=== PATIENT | female | born 1960 | race Native Hawaiian/Other Pacific Islander ===

== ENCOUNTER 2019-04-28 08:49 | Day surgery (SDC) | payer OTHER, SELFPAY ==
[2019-04-28] VITALS (8 sets, daily range): BP systolic 105–126; BP diastolic 54–83; PULSE 58–69; RESP 8–17; TEMP 36.1–36.6; O2SAT 86–100; BMI 24.7
--- NOTE | 2019-04-28 | PATH_ITS ---
[facility] Accession Number: [id number] . 01 Material submitted: . PART A: body - POLYP AT 60 PART B: body - POLYP AT 20 . 01 Clinical history: . OTHER FECAL ABNORMALITIES . 02 Diagnosis: A. Colon, Polyp at 60 cm, Biopsy: Colonic mucosa with surface hyperplastic-type changes. Negative for dysplasia and malignancy. . B. Colon, Polyp at 20, Biopsy: Tubular adenoma. MRV 04/30/2019 1010 Local . 02 Electronically signed: . Barb Segura MD, Pathologist NPI- [id number] . 01 Gross description: . (A) Received in formalin, labeled polyp @ 60, is a fragment of marmolejo tissue (0.4 x 0.4 x 0.1 cm). Filtered and entirely submitted in cassette A1. (B) Received in formalin, labeled polyp @ 20, is a marmolejo polyp (0.7 x 0.5 x 0.4 cm). The resection margin is inked blue. Bisected and entirely submitted in cassette A1. ([id number]) /MRV 04/29/2019 1211 Local . 02 Pathologist provided ICD-10: D12.6 . 02 CPT . 673251, [id number] Performed at: 01 [facility] [address], [place], [place] [id number] MD Enmanuel Butcher MD Phone: [phone] Performed at: 02 [facility] [address] [place], [place] [id number] MD Barb Segura MD Phone: [phone]
[2019-04-28] MEDS: SODIUM CHLORIDE 0.9% 1,000 ML 200 ML IV (09:27)
--- NOTE | 2019-04-28 09:34 | PM.HP.1 ---
History of Present Illness History of Present Illness Date Patient Seen: 04/28/19 Time Patient Seen: 09:42 Chief complaint: [id number] Narrative: Patient presents for colorectal screening. They have never had any previous examination for such. They had a positive cologaurd test recently. No family history of colon cancer. On further history denies any recent gastrointestinal symptoms. No nausea, vomiting, abdominal pain, loss of appetite, unexplained weight loss, change in bowel habits, diarrhea, constipation, melena, hematochezia, or bright red blood per rectum. Patient History Medical History H/O: hysterectomy (Acute) Surgical History History of appendectomy (Acute) Social History household members: spouse Meds Home Medications and Allergies Home Medications Medication Instructions Recorded Confirmed Type No Known Home Medications 04/28/19 04/28/19 History Allergies Allergy/AdvReac Type Severity Reaction Status Date / Time No Known Drug Allergies Allergy Verified 04/28/19 09:08 Review of Systems Review of Systems ROS Unobtainable: All systems reviewed & are unremarkable except as noted in HPI and below Exam Narrative Exam Narrative: General-adult female no acute distress, well nourished HEENT-moist mucous membranes, no scleral icterus Neck-supple with full range of motion, no lymphadenopathy Chest- no labored respirations, clear to auscultation bilaterally Cardiac-regular rate and rhythm Abdomen-soft, nontender, non distended Extremities-no edema, warm well perfused Neurological-alert and oriented x 3. No focal deficits Skin-normal temperature and turgor, no rashes or ulcers Assessment & Plan Assessment & Plan narrative: Patient is requiring colorectal screening. Colonoscopy is recommended. Technical details were discussed. Risks, benefits, alternatives explained. Risks including but not limited to sedation, aspiration, bleeding, pain, missed lesion, incomplete examination, need for further radiographic studies, colonic perforation, need for major abdominal surgery, and all attendant risks major surgery were discussed at length. All questions were answered to their satisfaction, and they voiced understanding.
--- NOTE | 2019-04-28 10:44 | PM.OP.ENDO ---
Operative Date/Time/Diagnoses Date of procedure: 04/28/19 Time of procedure: 10:44 Pre-op diagnosis: Positive Cologaurd test Post-op diagnosis: same Procedure & Clinicians Study performed: Colonoscopy Same procedure as scheduled: Yes Indications: 58F no prior colonoscopy with positive cologaurd test Surgeon: Mike Perez Procedure Notes SCOAP/Timeout: Performed Procedure in detail: Small external hemorrhoids. Digital rectal exam was performed no masses. The scope was carefully inserted into the rectum advanced through the colon to the cecum. The ileocecal valve was reached. Scope was there slowly withdrawn. There was a less than 1 cm benign-appearing polyp at 60 cm with no stalk that was biopsied multiple times. The site was hemostatic. Upon further withdrawal there was a pedunculated polyp less than 1 cm and 20 cm from the anal verge that was removed with snare electrocautery. The site was found to be hemostatic the specimen removed. The scope was then retroflexed within the rectum demonstrated grade was internal hemorrhoids. The rectum was then desufflated and the scope removed. Scope withdrawal time: 25 Sedation minutes: 38 Findings: polyp Specimen(s): other (polyps at 20 and 60cm) Impression: Polyps Post-procedure Recommendations: Colonscopy in 5 years Disposition: Acute Care
[2019-04-28] MEDS: fentaNYL 250 MCG/5 ML INJ IV (10:45)
[2019-04-28] MEDS: MIDAZOLAM 5 MG/5 ML VIAL IV (10:46)
--- NOTE | 2019-04-28 11:26 | SUR.PHASEI ---
stable pacu stay, report to oscar may.
--- NOTE | 2019-04-28 11:58 | SUR.PHASEII ---
1155 Had a 350 ml emesis (reported by BIOLOGIST) with complete resolution of nausea. Pt. wants to go home. Quease-ease and emesis bags given precautionary. Did not want any medication but told her that it she had more problem w/nausea to notify the dr office. Pleasant, no questions/concerns.
== END 2019-04-28 11:55 | disposition home or self-care (01) ==
PROVIDERS: PCP Family Medicine; Visit Provider Surgery
PROC: 0DJD8ZZ Inspection of Lower Intestinal Tract, Via Natural or Artificial Opening Endoscopic (ICD-10-PCS; CPT 45378; principal; 2019-04-28 10:00)
DX: R19.5 Other fecal abnormalities (principal); D12.6 Benign neoplasm of colon, unspecified; K64.4 Residual hemorrhoidal skin tags; K64.8 Other hemorrhoids
CPT/HCPCS: 45385; 99152; 99153; J2250; J3010

== ENCOUNTER 2021-06-24 10:35 | Emergency (ER) | payer OTHER, SELFPAY ==
[2021-06-24 10:57] VITALS: BP 131/70; PULSE 94; RESP 16; TEMP 37.7; O2SAT 100; BMI 23.2
--- NOTE | 2021-06-24 12:07 | ED_ITS ---
HPI - Skin/Abscess/Foreign Bdy General Chief complaint: Skin/Abscess/Foreign Body Stated complaint: cyst on rump Time Seen by Provider: 06/24/21 11:58 Source: patient Mode of arrival: Ambulatory Limitations: no limitations History of Present Illness HPI narrative: 60-year-old female here for evaluation of an abscess on her right buttocks. She started noticing some redness and several days ago. Was seen by her primary doctor. Was started on Keflex. Despite this medication symptoms have been worsening. No fevers. No problems urinating or bowel movements. Seen by primary doctor again today and was advised to come the emergency department for further observation Related Data Previous Rx's Medication Instructions Recorded doxycycline hyclate 100 mg tablet 100 mg PO BID 7 Days #14 tab 06/24/21 Allergies Allergy/AdvReac Type Severity Reaction Status Date / Time No Known Drug Allergies Allergy Verified 04/28/19 09:08 Review of Systems Constitutional Constitutional: Denies fever(s) Gastrointestinal Gastrointestinal: Reports as per HPI and Reports system reviewed and no additional complaints, except as documented Integumentary/Breasts Skin/Breast: Reports system reviewed and no additional complaints, except as documented Neurologic Neurologic: Reports system reviewed and no additional complaints, except as documented Hematologic/Lymphatic On Anticoagulants: No Patient History Surgical History H/O: hysterectomy History of appendectomy Social History household members: spouse Smoking Status: Current every day smoker Smoking Status: Current every day smoker Substance Use Type: does not use Exam Initial Vital Signs Initial Vital Signs: Vital Signs Temperature 99.8 F H 06/24/21 10:57 Pulse Rate 94 H 06/24/21 10:57 Respiratory Rate 16 06/24/21 10:57 Blood Pressure 131/70 06/24/21 10:57 Pulse Oximetry 100 06/24/21 10:57 Const General: cooperative and healthy appearing Resp Effort & Inspection: normal respiratory effort Cardio Rate: regular rate GI Other: Rectal exam is unremarkable. Roshan's seen or follow-up Skin Other: Patient with a large area of induration fluctuation on the right buttock. Does have some surrounding erythema Neuro General: patient alert and patient awake Procedures Abscess I/D I&D #1: Site: other (Right buttocks) Side (if applicable): right Local Anesthetic: lidocaine 1% and with bicarb Amount of anesthesia used (mL): 5 Technique: incised with #11 blade Irrigation: No Packing used?: iodoform Course Orders Ordered: Discontinued Medications Lidocaine/Sodium Bicarbonate (Lido 1%/Sod Bicarb 8.4% (10ml) 10 Ml Syringe) 10 ml INJ NOW ONE Stop: 06/24/21 12:09 Last Admin: 06/24/21 12:21 Dose: 10 ml Documented by: ALEJANDRO Vital Signs Vital signs: Vital Signs - 8 hr 06/24/21 10:57 Temperature 99.8 F H Pulse Rate 94 H Respiratory Rate 16 Blood Pressure 131/70 Pulse Oximetry 100 MDM - Skin/Abscess/Foreign Bdy MDM Narrative Medical decision making narrative: Bedside ultrasound does show abscess. The physical exam is more consistent with a very inguinal abscess rather than a pilonidal cyst abscess. Incision and drainage done as described above. Patient was given care instructions and return precautions. Will switch her to doxycycline. She expressed understanding and agreement. Discharge Plan Departure Patient Disposition: Home Clinical Impression: Abscess of skin or subcutaneous tissue Instructions: DI for Incision and Drainage of a Skin Abscess Activity Restrictions/Additional Instructions: I would expect some drainage from the area over the next hours to day. Keep the area covered to keep your clothes cleaned. There is packing in place and this can be removed in 48 hours like we discussed. Stop the antibiotics your currently taking we will place you on a new antibiotic. Keep your scheduled medical appointments. Return to the emergency department for any new or wor sening symptoms Prescriptions: New doxycycline hyclate 100 mg tablet 100 mg PO BID 7 Days Qty: 14 0RF Referrals: Jose Maria Mendoza [Primary Care Provider] -
[2021-06-24] MEDS: LIDO 1%/SOD BICARB 8.4% (10ML) 10 ML SYRINGE INJ (12:21)
[2021-06-24 12:55] VITALS: BP 138/75; PULSE 92; RESP 16; O2SAT 98
== END 2021-06-24 12:57 | disposition home or self-care (01) ==
PROVIDERS: Emergency Provider Emergency Medicine; PCP Family Medicine
DX: L02.31 Cutaneous abscess of buttock (principal)
CPT/HCPCS: 10060; 99282; 99283

== ENCOUNTER 2022-07-31 12:15 | Emergency (ER) | payer OTHER, SELFPAY ==
[2022-07-31 12:28] VITALS: BP 132/64; PULSE 85; RESP 18; TEMP 36.9; O2SAT 99; BMI 21.0
[2022-07-31] MEDS: TRIMETH/SULFA 160/800 (DS) TABLET 1 TAB PO (15:29)
[2022-07-31] MEDS: cephALEXin 250 MG CAPSULE 500 MG PO (15:29)
[2022-07-31 15:32] VITALS: BP 112/56; PULSE 89; RESP 16; O2SAT 99
--- NOTE | 2022-07-31 15:40 | ED_ITS ---
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 States it is purulence now with odorous drainage, tenderness on the left side as well with some firm tissue but denies palpable abscess or drainage. Patient had a procedure in the emergency department approximately 1 year ago to drain this abscess, states it progressed to a fistula and was a long-term wound. She denies history of allergies to antibiotics. Has not done warm compresses yet, denies fever or chills. States went sledding a few days ago which exacerbated this and now with swelling and tenderness surrounding her anus with drainage coming out of previous fistula site Related Data Previous Rx's Medication Instructions Recorded sulfamethoxazole 800 1 tab PO BID #20 tabs 07/31/22 mg-trimethoprim 160 mg tablet (Bactrim DS) Allergies Allergy/AdvReac Type Severity Reaction Status Date / Time No Known Drug Allergies Allergy Verified 07/31/22 12:28 Review of Systems <KETURAH Stanley - Last Filed: 07/31/22 15:46> Review of Systems ROS Unobtainable: All systems reviewed & are unremarkable except as noted in HPI and below Patient History <KETURAH Stanley - Last Filed: 07/31/22 15:46> Surgical History H/O: hysterectomy History of appendectomy Social History household members: spouse Smoking Status: Current every day smoker Smoking Status: Current every day smoker tobacco type: cigarettes alcohol intake frequency: 0-2 drinks per day Substance Use Type: marijuana Exam <KETURAH Stanley - Last Filed: 07/31/22 15:46> Narrative Exam Narrative: Reviewed vitals signs and nursing notes. General: cooperative, comfortable, in no acute distress, well groomed HEENT: symmetrical facial expressions, moist mucous membranes MSK: moves all extremities, neurovascularly intact, no weakness, normal tone Skin: brisk capillary refill, without pallor or erythema, anus with a couple of small hemorrhoids, nontender, purulence drainage coming from previous incision the right near her sphincter, express more purulence drainage from surrounding until without anymore. To the left of patient's anus there is firm tissue without fluctuance, appears most like cellulitis without abscess at this point. Will treat with antibiotics and encourage warm compresses to bring infection to the surface. Neuro: normal speech and cognition, A&O x3, ambulatory, clear speech Psych: mental status is grossly normal, congruent mood, normal affect, pleasant and cooperative Initial Vital Signs Initial Vital Signs: Vital Signs Temperature 98.5 F 07/31/22 12:28 Pulse Rate 85 07/31/22 12:28 Respiratory Rate 18 07/31/22 12:28 Blood Pressure 132/64 07/31/22 12:28 Pulse Oximetry 99 07/31/22 12:28 Oxygen Delivery Method 07/31/22 12:28 <Benjy López MD - Last Filed: 08/09/22 21:42> Initial Vital Signs Initial Vital Signs: Vital Signs Temperature 98.5 F 07/31/22 12:28 Pulse Rate 85 07/31/22 12:28 Respiratory Rate 18 07/31/22 12:28 Blood Pressure 132/64 07/31/22 12:28 Pulse Oximetry 99 07/31/22 12:28 Oxygen Delivery Method 07/31/22 12:28 Course <KETURAH Stanley - Last Filed: 07/31/22 15:46> Orders Ordered: Discontinued Medications Cephalexin HCl (Cephalexin 250 Mg Capsule) 500 mg PO NOW ONE Stop: 07/31/22 15:15 Last Admin: 07/31/22 15:29 Dose: 500 mg Documented By: DUC Lidocaine HCl (Lidocaine 2% Inj Sdv) 5 ml INJ INTRA-OP ONE Stop: 07/31/22 14:59 Last Admin: 07/31/22 15:24 Dose: Not Given Documented By: DUC Lidocaine HCl (Lidocaine 2% Inj Mdv 20ml) 20 ml INJ INTRA-OP ONE Stop: 07/31/22 14:59 Last Admin: 07/31/22 15:23 Dose: Not Given Documented By: DUC Lidocaine HCl (Lidocaine 1% 20 Ml) 20 ml INJ INTRA-OP ONE Stop: 07/31/22 14:59 Last Admin: 07/31/22 15:23 Dose: Not Given Documented By: DUC Trimethoprim/Sulfamethoxazole (Trimeth/Sulfa 160/800 (Ds) Tablet) 1 tab PO NOW ONE Stop: 07/31/22 15:15 Last Admin: 07/31/22 15:29 Dose: 1 tab Documented By: DUC Vital Signs Vital signs: Vital Signs - 8 hr 07/31/22 12:28 07/31/22 15:32 Temperature 98.5 F Pulse Rate 85 89 Respiratory Rate 18 16 Blood Pressure 132/64 112/56 L Pulse Oximetry 99 99 Oxygen Delivery Method Room Air Room Air <Benjy López MD - Last Filed: 08/09/22 21:42> Orders Ordered: Discontinued Medications Cephalexin HCl (Cephalexin 250 Mg Capsule) 500 mg PO NOW ONE Stop: 07/31/22 15:15 Last Admin: 07/31/22 15:29 Dose: 500 mg Documented By: DUC Lidocaine HCl (Lidocaine 2% Inj Sdv) 5 ml INJ INTRA-OP ONE Stop: 07/31/22 14:59 Last Admin: 07/31/22 15:24 Dose: Not Given Documented By: DUC Lidocaine HCl (Lidocaine 2% Inj Mdv 20ml) 20 ml INJ INTRA-OP ONE Stop: 07/31/22 14:59 Last Admin: 07/31/22 15:23 Dose: Not Given Documented By: DUC Lidocaine HCl (Lidocaine 1% 20 Ml) 20 ml INJ INTRA-OP ONE Stop: 07/31/22 14:59 Last Admin: 07/31/22 15:23 Dose: Not Given Documented By: DUC Trimethoprim/Sulfamethoxazole (Trimeth/Sulfa 160/800 (Ds) Tablet) 1 tab PO NOW ONE Stop: 07/31/22 15:15 Last Admin: 07/31/22 15:29 Dose: 1 tab Documented By: DUC Vital Signs Vital signs: Vital Signs - 8 hr 07/31/22 12:28 07/31/22 15:32 Temperature 98.5 F Pulse Rate 85 89 Respiratory Rate 18 16 Blood Pressure 132/64 112/56 L Pulse Oximetry 99 99 Oxygen Delivery Method Room Air Room Air MDM - Skin/Abscess/Foreign Bdy <Barb Serrano Pebblesmoisés, [facility] - Last Filed: 07/31/22 15:46> [facility] Narrative Medical decision making narrative: This is a 61-year-old female presents to the emergency department with drainage from previous anal fistula that was complicated from previous abscess 1 year ago complaining of purulence drainage and concern for infection. Differential diagnoses include infection of previous fistula space, cellulitis, additional abscess on the other side of her anus, pilonidal cyst, gangrene, MRSA. Expressed purulence from left draining open site, to the left patient's anus there is erythematous and firm tissue without fluctuance or palpable abscess. Will treat for cellulitis, encourage warm compresses over the next 24-72 hours, return if this develops into a fluid pocket, follow-up with general surgery for treatment and with PCP for further evaluation. Sensitivity/pain to light touch around the erythematous area. No lymphangitic spread visible and no fluid pockets or fluctuance concerning for abscess noted. Low concern for osteomyelitis or DVT. No immune compromise, bullae, pain out of proportion, or rapid progression concerning for necrotizing fasciitis Patient is appropriate and amenable to discharge home. Vital signs are stable on repeat examination is unremarkable. Patient has been informed of results. Patient has been given strict return to ER precautions for any new or worsening symptoms. Patient understands to follow up closely with outpatient providers as instructed. Patient understands plan and agrees to discharge home. All questions and concerns answered at this time. Discharge Plan Departure Patient Disposition: Home Clinical Impression: [id number], Cellulitis Instructions: DI for Cellulitis -- Adult, Anal Abscess, Anal Fistula Activity Restrictions/Additional Instructions: *You have been diagnosed with infection of your fistula and concern about cellulitis versus abscess on the left side. Please do warm compresses at least 3 times a day to help bring infection to the surface. In 24-48 hours, this should improve or worsen. Please take these antibiotics as prescribed. Use Tylenol ibuprofen for pain, encourage drainage. I am sorry for this, please follow-up with [facility] for surgical removal of this pocket. You can call and make an appointment with jason. Thank you for coming in for evaluation, I hope you feel better soon, please come back if this gets worse. *What to do: *Please continue to take your regular medications as directed. [ x] New medication prescriptions sent to your pharmacy: [ [facility]] [ ] New medication written as a paper prescription [ ] No new medications given *Please follow up with your primary care provider in 2-3 days, call for an appointment. Let them know you were seen in the Emergency Department and that we asked that you be seen for follow-up. We will electronically transmit a record of today's note if your PCP is in our system *If you do not have a primary care provider please contact [phone] to establish care with one of the [facility] primary care providers. *Return to Emergency Department if you should have any new, worsening, or concerning symptoms, such as [fever greater than 101F, chills, worsening pain, persistent vomiting or other bothersome symptoms]. Prescriptions: New sulfamethoxazole-trimethoprim [Bactrim DS] 800-160 mg tablet 1 tab PO BID Qty: 20 0RF Referrals: [facility] [Provider Group] Jose Maria Mendoza [Primary Care Provider] - <Benjy López MD - Last Filed: 08/09/22 21:42> Cosign ED Attending Cosignature Attestation: I was immediately available in the department for consultation. ?This documentation has been reviewed and I agree with assessment and plan. Supervised by Benjy López MD
== END 2022-07-31 15:35 | disposition home or self-care (01) ==
PROVIDERS: Emergency Provider Nurse Practitioner Critical Care Medicine; PCP Family Medicine
DX: L03.317 Cellulitis of buttock (principal); K60.3 Anal fistula
CPT/HCPCS: 99283

== ENCOUNTER 2022-10-04 12:28 | Day surgery (SDC) | payer OTHER, SELFPAY ==
[2022-10-02 10:41] VITALS: BMI 21.4
[2022-10-04] VITALS (7 sets, daily range): BP systolic 101–142; BP diastolic 43–86; PULSE 54–78; RESP 12–16; TEMP 36.2–37.1; O2SAT 97–100; BMI 21.4
[2022-10-04] MEDS: LACTATED RINGERS 1,000 ML 100 ML IV (13:13)
--- NOTE | 2022-10-04 14:33 | PM.PREOP ---
Pre-operative Note Interval Note History & Physical reviewed/Exam performed by Physician: Yes Changes to H&P: No
--- NOTE | 2022-10-04 15:14 | SUR.OPER ---
Lithotomy on padded OR bed, head on pillow, arms secured on padded arm boards at <90 degrees abduction. Legs secured in padded yellow fins stirrups.
[2022-10-04] MEDS: BUPIVACAINE 0.25% (PF) VIAL 10 ML INJ (15:22)
--- NOTE | 2022-10-04 15:39 | PM.OP.1 ---
Operative Date/Time/Diagnoses Date of procedure: 10/04/22 Time of procedure: 15:39 Pre-op diagnosis: Perianal fistula Post-op diagnosis: same Procedure & Clinicians Procedure: Rectal examination under anesthesia. Fistulotomy Same procedure as scheduled: Yes Indications: 62-year-old woman with a perianal abscess year and half ago that has developed into persistent perianal drainage Surgeon: Mike Dudley Yes if Unassisted: Yes Anesthesia Type: General Operative Notes Findings: Superficial perianal fistula from 7 o'clock position Specimen(s): none sent Estimated Blood Loss (mL): 10 Procedure in detail: Patient was brought to the operating room placed supine on the table. Bilateral lower extremity compression devices were applied. General anesthesia was induced she was intubated with an LMA. She was then prepped and draped in sterile fashion and placed into lithotomy position and appropriately padded. Perianal examination was made. There is a punctate opening at the 7 o'clock position on the right buttock. A lacrimal probe was inserted into this punctate opening and fistula track was identified which tracked radially into the anal canal. This is a superficial fistula and the overlying tissue was incised with electrocautery after 10 mL of local anesthetic was injected. Fistula tract was superficial to the sphincter. The fistula tract was then curetted and the perianal skin was loosely reapproximated with interrupted Vicryl suture. Patient tolerated the procedure well was transferred to recovery room in stable condition. Complications: none Post-operative Condition: stable Disposition: same day surgery
== END 2022-10-04 16:27 | disposition home or self-care (01) ==
PROVIDERS: PCP Family Medicine; Referring Provider Surgery; Visit Provider Surgery
PROC: (CPT 46270; principal; 2022-10-04 13:45)
DX: K60.3 Anal fistula (principal)
CPT/HCPCS: 46270; 82962; J1100; J2250; J2405; J2704; J3010; J3490